=== PATIENT | female | born 1985 | race Caucasian/White ===

== ENCOUNTER 2018-05-25 11:25 | Emergency (ER) | payer MEDICAID ==
[~2018-05-25] VITALS: Ht 157.5 cm; Wt 103.0 kg
--- NOTE | 2018-05-25 11:33 | NUR ---
PT AMBULATED TO ER BED 04
[2018-05-25 11:38] VITALS: BP 167/99
--- NOTE | 2018-05-25 11:52 | NUR ---
BIB SELF. C/O R EAR PAIN X 2 DAYS AND STATES IT STARTED DRAINING YELLOW/GREEN FLUID YESTERDAY. STATES SHE HAS HAD FLU LIKE SYMPTOMS -NVD, +COUGH, +FEVER, +BODY ACHES X2DAYS BUT HER SYMPTOMS HAVE LESSENED SIGNIFICANTLY TODAY.
[2018-05-25 12:06] VITALS: BP 167/99
--- NOTE | 2018-05-25 12:06 | NUR ---
Patient discharged with v/s stable. Written and verbal after care instructions given and explained. Patient alert, oriented and verbalized understanding of instructions. Ambulatory with steady gait. All questions addressed prior to discharge. ID band removed. Patient advised to follow up with PMD. Rx of CORTISPORIN given. Patient educated on indication of medication including possible reaction and side effects. Opportunity to ask questions provided and answered.
== END 2018-05-25 12:06 | disposition home or self-care (01) ==
LOC: MED 11:25
DX: H60.91 Unspecified otitis externa, right ear (principal); B34.9 Viral infection, unspecified; I10 Essential (primary) hypertension
CPT/HCPCS: 81025; 99283